=== PATIENT | female | born 1970 | race Caucasian/White ===

== ENCOUNTER 2020-04-11 18:19 | Emergency (ER) | payer OTHER ==
[~2020-04-11] VITALS: Ht 165.1 cm; Wt 76.7 kg
[2020-04-11 18:32] VITALS: BP_SYST 139
--- NOTE | 2020-04-11 18:37 | NUR ---
Patient triaged and placed in waiting room. VSS and patient appears in no acute distress at this time. Awaiting available bed, and MD notified of need for MSE.
--- NOTE | 2020-04-11 18:40 | NUR ---
Patient to ER chair to gown for evaluation. Side rails up. Report given to BREN Barrientos.
[2020-04-11] MEDS ORDERED: KETOROLAC TROMETHAMINE 60 MG/2 ML VIAL IM ONE (18:45)
--- NOTE | 2020-04-11 19:00 | NUR ---
ER Dr. MERCEDES at bedside examining patient.
--- NOTE | 2020-04-11 19:05 | NUR ---
Pt c/o of neck pain that was triggered on friday when carrying groceries. Pt states pain is consistent on neck and down left arm and rates it a 9 out of 10.
[2020-04-11 19:31] VITALS: BP_SYST 139
--- NOTE | 2020-04-11 19:31 | NUR ---
Patient given written and verbal discharge instructions and verbalizes understanding. ER MD discussed with patient the results and treatment provided. Patient in stable condition. ID arm band removed. Rx of NAPROXEN given. Patient educated on pain management and to follow up with PMD. Pain Scale 3/10. Opportunity for questions provided and answered. Medication side effect fact sheet provided.
== END 2020-04-11 19:31 | disposition home or self-care (01) ==
LOC: SED 18:19
DX: S13.9XXA Sprain of joints and ligaments of unspecified parts of neck, initial encounter (principal); F17.200 Nicotine dependence, unspecified, uncomplicated; F12.90 Cannabis use, unspecified, uncomplicated; X50.0XXA Overexertion from strenuous movement or load, initial encounter; Y93.89 Activity, other specified; Y92.89 Other specified places as the place of occurrence of the external cause; Y99.8 Other external cause status
CPT/HCPCS: 96372; 99283; J1885